=== PATIENT | female | born 1985 | race American Indian/Alaskan Native ===

== ENCOUNTER 2018-12-04 13:11 | Inpatient (IN) | payer MEDICAID ==
--- NOTE | 2018-12-04 13:20 | Emergency Department Report ---
HPI - General Time Seen by Provider: 12/04/18 13:14 - HPI HPI: Charge nurse Triage/Room 23 The patient is a 33 y/o F p/w a CC of Headache and blurred vision. The patient states She's had a headache for the past 2-3 days. The patient states today at ~ 11:30 she began having intermittent blurred vision from the left eye. EMS noticed sl left facial weakness ED Past Medical Hx - Surgical History Past Surgical History?: No - Family History Family history: no significant - Social History Smoking Status: Never Smoker Substance Use Type: None ED Review of Systems ROS: Stated complaint: STROKE LIKE SX Other details as noted in HPI Constitutional: no symptoms reported Eyes: vision change ENT: denies: throat pain Respiratory: no symptoms reported Cardiovascular: denies: chest pain Gastrointestinal: denies: abdominal pain Genitourinary: denies: dysuria Musculoskeletal: denies: back pain Neurological: headache Physical Exam - Physical Exam Physical Exam: GEN: WD female lying on stretcher holding emesis bag not appearing to be in acute distress. HEENT: NCAT, EOMI Neck: Trachea midline CV: rrr Lungs: BS equal bilat Abd: S/NT/ND Skin: no diaphoresis Neuro: GCS 15. CN II-XII grossly intact with the exception of CN VII on the left. no drift. tongue appears to dev to the right NIHSS= 3 LOC a. Alert= 0 Not alert but arousable to minor stimuli=1 Not alert requires repeated or strong stimuli to move= 2 Responds only reflex motor or unresponsive=3 b. asks month and age answers both correctly= 0 answers one correctly= 1 answers neither correctly= 2 Best Gaze normal= 0 abnormal in one or both but forced deviation or total paresis absent= 1 forced deviation or total gaze paresis= 2 Visual no visual loss= 0 partial hemianopia= 1 complete hemianopia= 2 bilateral hemianopia= 3 Facial Palsy normal= 0 (+) minor paralysis= 1 partial paralysis= 2 complete paralysis= 3 Motor Arm no drift= 0 drift before 10 secs but doesnt hit bed= 1 some effort against gravity= 2 no effort against gravity= 3 no movement= 4 Motor leg no drift= 0 drift before 5 secs but doesnt hit bed= 1 (+) drifts to bed before 5 secs= 2 no effort against gravity= 3 no movement= 4 Limb ataxia absent=0 present in one limb= 1 present in two limbs= 2 Sensory normal= 0 mild sensory loss= 1 severe (unaware of being touched)= 2 Best language mild/some loss of fluency= 1 severe= 2 mute= 3 Dysarthria normal= 0 slurs some words= 1 severe/unintelligible= 2 Extinction and Inattention no abnormality= 0 visual, tactile, auditory or personal inattention= 1 profound (doesnt recognize own hand or orients to only one side= 2 ED Course - Consultations Consultation #1: 12/04/18 13:40 Tele neurology paged 12/04/18 13:46 Case discussed with neurologist Dr. Camacho 12/04/18 14:09 Case discussed with neurologist-recommends administering TPA unless patient shows rapid improvement ED Medical Decision Making - Lab Data Result diagrams: 12/04/18 13:32 12/04/18 13:32 Laboratory Tests 12/04/18 12/04/18 12/04/18 13:16 13:32 13:32 WBC 13.2 H RBC 4.69 Hgb 11.1 Hct 34.6 MCV 74 L MCH 24 L MCHC 32 RDW 18.8 H Plt Count 354 Lymph % (Auto) 25.1 [place] % (Auto) 4.7 Eos % (Auto) 1.4 Baso % (Auto) 0.4 Lymph # 3.3 [place] # 0.6 Eos # 0.2 Baso # 0.1 Seg Neutrophils % 68.4 Seg Neutrophils # 9.0 H PT 13.6 INR 1.00 APTT 25.0 Thrombin Time 15.1 Sodium Potassium Chloride Carbon Dioxide Anion Gap BUN Creatinine Estimated GFR BUN/Creatinine Ratio Glucose POC Glucose 122 H Calcium Total Bilirubin AST ALT Alkaline Phosphatase Total Creatine Kinase CK-MB (CK-2) CK-MB (CK-2) Rel Index Troponin T Total Protein Albumin Albumin/Globulin Ratio HCG, Quant 12/04/18 12/04/18 13:32 13:32 WBC RBC Hgb Hct MCV MCH MCHC RDW Plt Count Lymph % (Auto) [place] % (Auto) Eos % (Auto) Baso % (Auto) Lymph # [place] # Eos # Baso # Seg Neutrophils % Seg Neutrophils # PT INR APTT Thrombin Time Sodium 141 Potassium 4.0 Chloride 104.0 Carbon Dioxide 27 Anion Gap 14 BUN 10 Creatinine 0.7 Estimated GFR > 60 BUN/Creatinine Ratio 14 Glucose 102 H POC Glucose Calcium 9.5 Total Bilirubin 0.20 AST 16 ALT 38 Alkaline Phosphatase 117 Total Creatine Kinase 115 CK-MB (CK-2) < 1.0 CK-MB (CK-2) Rel Index 0.8 Troponin T < 0.010 Total Protein 7.2 Albumin 4.3 Albumin/Globulin Ratio 1.5 HCG, Quant < 2 - EKG Data -: EKG Interpreted by Ga EKG shows normal: sinus rhythm Rate: normal - EKG Data When compared to previous EKG there are: previous EKG unavailable Interpretation: other (no ischemic changes) - Radiology Data Radiology results: report reviewed (CT head), image reviewed (CT head) [facility] [address] [place] [address] Cat Scan Report Signed Patient: RENEE CHAVEZ MR#: [id number] : 1985 Acct:[id number] Age/Sex: 33 / F ADM Date: 12/04/18 Loc: ED Attending Dr: Ordering Physician: FLAQUITA BUTLER MD Date of Service: 12/04/18 Procedure(s): CT head/brain wo con Accession Number(s): [id number] cc: FLAQUITA BUTLER MD FINAL REPORT EXAM: CT HEAD/BRAIN WO CON HISTORY: Stroke symptoms TECHNIQUE: CT examination of the head without IV contrast PRIORS: None. FINDINGS: Nonspecific complete opacification right sphenoid sinus. This could obscure fluid. No acute air-fluid level visualized in the included air-filled sinuses. Bone windows demonstrate no acute fracture. The brain is without mass, mass effect, hemorrhage, or acute infarct. There is no extra-axial intracranial bleed, brain bleed, or midline shift. The ventricles and sulci are age-appropriate. IMPRESSION: No acute CVA, intracranial bleed, or brain mass Complete opacification right sphenoid sinus could obscure fluid from acute sinusitis Transcribed By: BAL Dictated By: WILMAN ROJAS MD Electronically Authenticated By: WILMAN ROJAS MD Signed Date/Time: 12/04/181404 DD/ 06 TD/TT: 12/04/181406 - Differential Diagnosis Complex migraine, CVA, Ashley's palsy, MS Critical Care Time: Yes Critical care time in (mins) excluding proc time.: 30 Critical care attestation.: If time is entered above; I have spent that time in minutes in the direct care of this critically ill patient, excluding procedure time. ED Disposition Clinical Impression: CVA (cerebral vascular accident) Disposition: OP ADMIT IP TO THIS HOSP Is pt being admited?: Yes Does the pt Need Aspirin: No Condition: Serious Time of Disposition: 14:35 (Hospitalist Notified (Dr Woody))
[2018-12-04] MEDS ORDERED: FUL-GLO OP ONE (13:42)
--- NOTE | 2018-12-04 14:05 | Cat Scan Report ---
FINAL REPORT EXAM: CT HEAD/BRAIN WO CON HISTORY: Stroke symptoms TECHNIQUE: CT examination of the head without IV contrast PRIORS: None. FINDINGS: Nonspecific complete opacification right sphenoid sinus. This could obscure fluid. No acute air-fluid level visualized in the included air-filled sinuses. Bone windows demonstrate no acute fracture. The brain is without mass, mass effect, hemorrhage, or acute infarct. There is no extra-axial intracranial bleed, brain bleed, or midline shift. The ventricles and sulci are age-appropriate. IMPRESSION: No acute CVA, intracranial bleed, or brain mass Complete opacification right sphenoid sinus could obscure fluid from acute sinusitis
[2018-12-04] MEDS ORDERED: ACTIVASE IV ONE ×2 (14:08)
[2018-12-04] MEDS ORDERED: NACL 0.9% IV ONE (14:08)
[2018-12-04] MEDS ORDERED: ACTIVASE ONE (14:11)
[2018-12-04] MEDS ORDERED: NACL 0.9% 500 ML 0 ML ONE (14:12)
[2018-12-04 14:14] LABS: Basophils # (Auto) 0.1 K/mm3 (0.0-0.1); Basophils % (Auto) 0.4 % (0.0-1.8); Eosinophils # (Auto) 0.2 K/mm3 (0.0-0.4); Eosinophils % (Auto) 1.4 % (0.0-4.3); Hematocrit 34.6 % (30.3-42.9); Hemoglobin 11.1 gm/dl (10.1-14.3); Lymphocytes # (Auto) 3.3 K/mm3 (1.2-5.4); Lymphocytes % (Auto) 25.1 % (13.4-35.0); Mean Corpuscular HGB Conc 32 % (30-34); Mean Corpuscular Volume 74 fl (79-97); Monocytes # (Auto) 0.6 K/mm3 (0.0-0.8); Monocytes % (Auto) 4.7 % (0.0-7.3); Platelet Count 354 K/mm3 (140-440); Red Blood Count 4.69 M/mm3 (3.65-5.03); Red Cell Distribution Width 18.8 % (13.2-15.2)
[2018-12-04 14:18] LABS: Alanine Aminotransferase 38 units/L (7-56); Albumin 4.3 g/dL (3.9-5); BUN/Creatinine Ratio 14; Blood Urea Nitrogen 10 mg/dL (7-17); Calcium 9.5 mg/dL (8.4-10.2); Hemolysis Index 6
[2018-12-04 14:26] LABS: Creatine Kinase MB < 1.0 ng/mL (0.0-4.0)
[2018-12-04 14:33] LABS: Thrombin Time 15.1 Sec. (15.1-19.6)
[2018-12-04 15:00] LABS: Bacteria,Urine 1+ /HPF (Negative); Bilirubin,Urine NEG (Negative); Blood,Urine NEG (Negative); Color,Urine Yellow (Yellow); Mucus,Urine FEW /HPF; Protein,Urine <15 mg/dL mg/dL (Negative); Urobilinogen,Urine < 2.0 mg/dL (<2.0)
[2018-12-04] MEDS ORDERED: SODIUM CHLORIDE FLUSH SYRINGE 10 ML IV PRN (15:07)
[2018-12-04] MEDS ORDERED: PHENERGAN PR PRN (15:07)
[2018-12-04] MEDS ORDERED: REGLAN PO PRN (15:07)
[2018-12-04] MEDS ORDERED: DULCOLAX PR PRN (15:07)
[2018-12-04] MEDS ORDERED: MILK OF MAGNESIA PO PRN (15:07)
[2018-12-04] MEDS ORDERED: ZOFRAN IV PRN (15:07)
--- NOTE | 2018-12-04 15:10 | History and Physical Report ---
History of Present Illness Chief complaint: I feel weak History of present illness: 33 YO Female with Obesity presents to ED for evaluation. Pt states that she has experienced a headache for the past 2 days with persistent symptoms during the same time frame. Pt also reports acute onset of blurred vision in her left eye, left facial weakness, and Left leg weakness. EMS notified, and upon arrival the patient was found to have evidence of neurologic deficit. Pt transported to [facility] for further care and evaluation. Pt seen and evaluated in ED and found to have evidence of CVA. Teleneurology consulted, and patient was treated with TPA as per neurology recommendations. Pt admitted to ICU and initiated on CVA protocol. Past History Past Medical History: other (obesity) Past Surgical History: No surgical history (reviewed) Social history: single Family history: no significant family history (reviewed) Medications and Allergies Allergies Allergy/AdvReac Type Severity Reaction Status Date / Time ibuprofen Allergy Unknown Verified 12/04/18 13:20 Home Medications Medication Instructions Recorded Confirmed Last Taken Type ALBUTEROL Inhaler (OR & NICU) 2 puff IH QAM&QHS PRN 12/04/18 12/04/18 Unknown History [Proair] Acetaminophen [Tylenol] 1 - 2 tab PO Q6HR PRN 12/04/18 12/04/18 Unknown History Fluticasone [Flonase] 2 spray NS QDAY 12/04/18 12/04/18 Unknown History Loratadine [Claritin] 10 mg PO DAILY 12/04/18 12/04/18 Unknown History Review of Systems Constitutional: no weight loss, no weight gain, no fever, no chills Eyes: left: blurred vision Ears, nose, mouth and throat: no ear pain, no ear discharge, no tinnitis, no decreased hearing, no nose pain Breasts: no change in shape, no swelling, no mass Cardiovascular: no chest pain, no orthopnea, no palpitations, no rapid/irregular heart beat Respiratory: no cough, no cough with sputum, no excessive sputum, no hemoptysis, no shortness of breath Gastrointestinal: no nausea, no vomiting, no diarrhea, no constipation, no change in bowel habits Genitourinary Female: no dysmenorrhea, no pelvic pain, no flank pain, no menorrhagia, no dysuria, no urinary frequency, no urgency Menstruation: no premenarcheal, no post hysterectomy, no ammenorrhea, no ammenorrhea on BC, no period normal, no period heavy Rectal: no pain, no incontinence, no bleeding Musculoskeletal: no neck pain, no shooting arm pain, no arm numbness/tingling, no low back pain, no shooting leg pain Integumentary: no rash, no pruritis, no redness, no sores, no wounds Neurological: paralysis, weakness, loss of vision, no transient paralysis, no parathesias, no numbness, no tingling, no seizures Psychiatric: no anxiety, no memory loss, no change in sleep habits, no sleep disturbances, no insomnia, no hypersomnia, no change in appetite Endocrine: no cold intolerance, no heat intolerance, no polyphagia, no excessive thirst, no polydipsia, no polyuria Hematologic/Lymphatic: no easy bruising, no easy bleeding, no lymphadenopathy, no lymphedema Allergic/Immunologic: no urticaria, no allergic rhinitis, no wheezing, no pers istent infections Exam - Constitutional Vitals: Temp Pulse Resp BP Pulse Ox 98.0 F 78 15 149/76 100 12/04/18 13:15 12/04/18 14:45 12/04/18 14:45 12/04/18 14:45 12/04/18 14:45 General appearance: Present: mild distress, obese - EENT Eyes: Present: PERRL ENT: hearing intact, clear oral mucosa - Neck Neck: Present: supple, normal ROM - Respiratory Respiratory effort: normal Respiratory: bilateral: CTA - Cardiovascular Heart Sounds: Present: S1 & S2. Absent: rub, click - Extremities Extremities: pulses symmetrical, No edema Peripheral Pulses: within normal limits - Abdominal General gastrointestinal: Present: soft, non-tender, non-distended, normal bowel sounds Female genitourinary: Present: normal - Integumentary Integumentary: Present: clear, warm, dry - Musculoskeletal Musculoskeletal: left sided weakness - Psychiatric Psychiatric: appropriate mood/affect, intact judgment & insight - Neurologic Neurologic: CNII-XII intact, moves all extremities Results - Labs CBC & Chem 7: 12/04/18 13:32 12/04/18 13:32 Labs: Abnormal lab results 12/04/18 12/04/18 12/04/18 Range/Units 13:16 13:32 13:32 WBC 13.2 H (4.5-11.0) K/mm3 MCV 74 L (79-97) fl MCH 24 L (28-32) pg RDW 18.8 H (13.2-15.2) % Seg Neutrophils # 9.0 H (1.8-7.7) K/mm3 Glucose 102 H (65-100) mg/dL POC Glucose 122 H (70-105) U Epithel Cells (Auto) (0-13.0) /HPF 12/04/18 Range/Units 14:48 WBC (4.5-11.0) K/mm3 MCV (79-97) fl MCH (28-32) pg RDW (13.2-15.2) % Seg Neutrophils # (1.8-7.7) K/mm3 Glucose (65-100) mg/dL POC Glucose (70-105) U Epithel Cells (Auto) 14.0 H (0-13.0) /HPF Assessment and Plan - Patient Problems (1) CVA (cerebral vascular accident) Current Visit: Yes Status: Acute Qualifiers: Precerebral and cerebral artery: middle cerebral artery Laterality of affected vessel: right Plan to address problem: Admit to ICU, S/P TPA administration in ED, MRI Brain, MRA Brain, Echo, Carotid doppler, EEG, Antiplatelet therapy, Neuro checks, The high probability of a clinically significant, sudden or life threatening deterioration of the [neuro, resp] system(s) required my full and direct attention, intervention and personal management. The aggregate critical care time was [65] minutes. This time is in addition to time spent performing reported procedures but includes the following: [x] Data Review and interpretation [x] Patient assessment and monitoring of vital signs [x] Documentation [x] Medication orders and management (2) UTI (urinary tract infection) Current Visit: Yes Status: Acute Qualifiers: Urinary tract infection type: acute cystitis Plan to address problem: IV antibiotic therapy, urinialysis, supportive care. (3) SIRS (systemic inflammatory response syndrome) Current Visit: Yes Status: Acute Plan to address problem: IV antibiotic therapy, supportive care, CBC, CMP, monitor uop q shift (4) DVT prophylaxis Current Visit: Yes Status: Acute Plan to address problem: SCD to BLE while in bed.
[2018-12-04] MEDS ORDERED: PROAIR IH PRN (15:11)
[2018-12-04] MEDS ORDERED: PROVENTIL IH PRN (15:37)
--- NOTE | 2018-12-04 17:45 | Cat Scan Report ---
FINAL REPORT PROCEDURE: CT angiogram head with contrast. TECHNIQUE: Computerized tomographic angiography of the head was performed after the IV injection of iodinated nonionic contrast including image processing. The image data was postprocessed using 2-dime nsional multiplanar reformatted (MPR) and 3-dimensional (MIP and/or volume rendered) techniques. HISTORY: Left-sided weakness. COMPARISON: No prior studies are available for comparison. FINDINGS: Both distal internal carotid arteries are widely patent. Both anterior cerebral arteries are patent. The anterior communicating artery is patent. Both middle cerebral arteries are patent. Both posterior communicating arteries are patent. Both distal vertebral arteries are patent. Both posterior inferio r cerebellar arteries are patent. The basilar artery is patent. Both anterior inferior cerebellar art eries are patent. Both superior cerebellar and both posterior cerebral arteries are patent. There are no signs of aneurysm disease. There is no evidence of a vasculitis. There is no evidence of abnormal contrast enhancement within the brain parenchyma. IMPRESSION: Normal study.
--- NOTE | 2018-12-04 18:06 | Cat Scan Report ---
FINAL REPORT EXAM: CT ANGIO NECK HISTORY: left-sided weakness TECHNIQUE: Carotids/neck CT angiography with IV contrast 2D and 3D image reformation PRIORS: None. FINDINGS: Large body habitus limits the examination. Increased soft tissue attenuates the CT x-ray beam and de grades image quality. The vertebral and carotid arteries are bilaterally patent diffusely. Vessel caliber is normal without stenosis, ulceration, or aneurysm. There is no definite filling defect to suggest dissection. IMPRESSION: No evidence of neck vascular pathology
--- NOTE | 2018-12-04 18:21 | Consultation ---
History of Present Illness Consult date: 12/04/18 Requesting physician: АНДРЕЙ DEL CASTILLO Reason for consult: other (CVA s/p TPA needs ICU admission for monitoring) History of present illness: 33 YO woman with morbid obesity presented to ED for evaluation. Patient stated that she has experienced a headache for the past 2 days with persistent symptoms during the same time frame. She also reported acute onset of blurred vision in her left eye, left facial weakness, and Left leg weakness. EMS notified, and upon arrival the patient was found to have evidence of neurologic deficit. Patient was transported to [facility] for further care and evaluation.She seen and evaluated in ED and a diagnosis of acute CVA was made. Teleneurology consulted, and patient was treated with TPA per neurology recommendations. Patient was admitted to ICU and I have been consulted for critical care management. Patient seen and examined in the ED s/p TPA for acute CVA Vitals, Labs, medications, chart were reviewed. She continues to complain of a headache, no nausea or vomiting. REVIEW OF SYSTEMS Constitutional: no symptoms reported Eyes: vision change ENT: denies: throat pain Respiratory: no symptoms reported, no cough, no shortness of breath, no hemoptysis Cardiovascular: denies: chest pain, no palpitations,orthopnea, PND Gastrointestinal: denies: abdominal pain, no nausea, no vomiting Genitourinary: denies: dysuria Musculoskeletal: denies: back pain, joint aches and pains, arthralgia Neurological: headache Past History Past Medical History: other (obesity) Past Surgical History: No surgical history (reviewed) Social history: single Family history: no significant family history (reviewed) Medications and Allergies Allergies Allergy/AdvReac Type Severity Reaction Status Date / Time ibuprofen Allergy Unknown Verified 12/04/18 13:20 Home Medications Medication Instructions Recorded Confirmed Last Taken Type ALBUTEROL Inhaler (OR & NICU) 2 puff IH QAM&QHS PRN 12/04/18 12/04/18 Unknown History [Proair] Acetaminophen [Tylenol] 1 - 2 tab PO Q6HR PRN 12/04/18 12/04/18 Unknown History Fluticasone [Flonase] 2 spray NS QDAY 12/04/18 12/04/18 Unknown History Loratadine [Claritin] 10 mg PO DAILY 12/04/18 12/04/18 Unknown History Active Meds: Active Medications Acetaminophen (Tylenol) 650 mg PO Q4H PRN PRN Reason: Pain, Mild (1-3) Albuterol (Proventil) 2.5 mg IH Q4HRT PRN PRN Reason: Shortness Of Breath Atorvastatin Calcium (Lipitor) 40 mg PO QHS VALERIA Bisacodyl (Dulcolax) 10 mg OK QDAY PRN PRN Reason: Constipation Fluticasone Propionate (Flonase) 100 mcg NS QDAY VALERIA Ceftriaxone Sodium (Rocephin/Ns 1 Gm/50 Ml) 1 gm in 50 mls @ 100 mls/hr IV Q24HR VALERIA; Protocol Loratadine (Claritin) 10 mg PO DAILY VALERIA Magnesium Hydroxide (Milk Of Magnesia) 30 ml PO Q4H PRN PRN Reason: Constipation Metoclopramide HCl (Reglan) 10 mg PO Q6H PRN PRN Reason: Nausea And Vomiting Ondansetron HCl (Zofran) 4 mg IV Q8H PRN PRN Reason: Nausea And Vomiting Promethazine HCl (Phenergan) 25 mg OK Q6H PRN PRN Reason: Nausea And Vomiting Sodium Chloride (Sodium Chloride Flush Syringe 10 Ml) 10 ml IV PRN PRN PRN Reason: LINE FLUSH Physical Examination Vital signs: Vital Signs Temp Pulse Resp BP Pulse Ox 98.0 F 103 H 18 183/60 100 12/04/18 13:15 12/04/18 13:15 12/04/18 13:15 12/04/18 13:15 12/04/18 13:15 General appearance: no acute distress, appears uncomfortable, other (morbid obese) Eyes: non-icteric ENT: oropharynx moist Neck: supple, no lymphadenopathy, no JVD, other (short neck) Effort: normal Ascultation: Bilateral: clear, diminished breath sounds (at the bases, poor effort) Cardiovascular: regular rate and rhythm, other (S1,S2,no murmurs, gallops or rubs) Gastrointestinal: normoactive bowel sounds, soft, non-tender, non-distended, other (no hepatosplenomegally) Integumentary: normal Extremities: no cyanosis, no edema, pulses normal, no ischemia or petechiae Musculoskeletal: no deformities non-focal exam, pupils equal and round, CN II-XII normal, motor strength normal and mood appropriate Results - Laboratory Findings CBC and BMP: 12/04/18 13:32 12/04/18 13:32 PT/INR, D-dimer PT 13.6 Sec. (12.2-14.9) 12/04/18 13:32 INR 1.00 (0.87-1.13) 12/04/18 13:32 Abnormal lab findings: Abnormal Labs 12/04/18 12/04/18 12/04/18 13:16 13:32 13:32 WBC 13.2 H MCV 74 L MCH 24 L RDW 18.8 H Seg Neutrophils # 9.0 H Glucose 102 H POC Glucose 122 H U Epithel Cells (Auto) 12/04/18 14:48 WBC MCV MCH RDW Seg Neutrophils # Glucose POC Glucose U Epithel Cells (Auto) 14.0 H Assessment and Plan -Acute CVA (right MCA) S/P TPA administration in ED, -Hypertension -Extreme obesity Admit to ICU --ICU monitoring per protocol s/p TPA -Neurochecks per protocol -Blood pressure management per protocol -Fasting lipid profile, TSH -Secondary stroke prophylaxis -MRI/MRA brain -Symptom management of headaches -Life style modification and weight loss -Currently on empiric antibiotics from ED for possible UTI. Follow cultures and NNACY, in the absence of signs of infection will de-escalate antibiotic therapy -Monitor leukocytosis -PT/OT/FINANCIAL COORDINATOR evaluation -Keep NPO for now -SCDs for VTE prophylaxis for now -Monitor accucheck and avoid hypoglycemia The high probability of a clinically significant, sudden or life threatening deterioration of the [neurologic] system(s) required my full and direct attention, intervention and personal management. The aggregate critical care time was [35] minutes. This time is in addition to time spent performing reported procedures but includes the following: [x] Data Review and interpretation [x] Patient assessment and monitoring of vital signs [x] Documentation [x] Medication orders and management
[2018-12-04] MEDS: ROCEPHIN/NS 1 GM/50 ML 1 GM/50 ML BAG IV SCH (18:43)
[2018-12-04] MEDS: TYLENOL PO PRN (22:24)
[2018-12-05 05:26] LABS: Chol/HDL Ratio 3.75 %
[2018-12-05] MEDS: CLARITIN PO SCH (09:45)
[2018-12-05] MEDS: ROCEPHIN/NS 1 GM/50 ML 1 GM/50 ML BAG IV SCH (09:45)
[2018-12-05] MEDS: TYLENOL PO PRN (10:33)
--- NOTE | 2018-12-05 10:50 | Progress Note ---
Assessment and Plan -Acute CVA (right MCA) S/P TPA administration in ED, -Hypertension -Extreme obesity -Blood pressure management -Fasting lipid profile, TSH -Secondary stroke prophylaxis -MRI/MRA brain -Symptom management of headaches -Life style modification and weight loss -Monitor leukocytosis -PT/OT -VTE prophylaxis for now -Monitor accucheck and avoid hypoglycemia Subjective Date of service: 12/05/18 Interval history: Patient is seen today for: Acute CVA (right MCA) S/P TPA administration in ED; Hypertension; Extreme obesity Seen and examined at bedside; 24hour events reviewed; nursing and respiratory care staff consulted; no adverse overnight events reported to me; resting peacefully in bed; no new issues respiratory-garcias; No N/V/F/C; no new onset focal weakness Objective Vital Signs - 12hr 12/04/18 12/04/18 12/04/18 22:51 23:00 23:11 Temperature Pulse Rate 103 H 76 73 Pulse Rate [ Left Arm] Respiratory 16 17 22 Rate Respiratory Rate [Left Arm] Blood Pressure 155/99 155/99 152/103 Blood Pressure [Left Arm] O2 Sat by Pulse 99 100 100 Oximetry O2 Sat by Pulse Oximetry [Left Arm] 12/04/18 12/04/18 12/04/18 23:21 23:30 23:41 Temperature Pulse Rate 73 64 69 Pulse Rate [ Left Arm] Respiratory 16 17 18 Rate Respiratory Rate [Left Arm] Blood Pressure 136/100 131/94 131/94 Blood Pressure [Left Arm] O2 Sat by Pulse 100 100 100 Oximetry O2 Sat by Pulse Oximetry [Left Arm] 12/04/18 12/04/18 12/05/18 23:45 23:51 00:00 Temperature 97.1 F L Pulse Rate 67 65 Pulse Rate [ 68 Left Arm] Respiratory 19 12 Rate Respiratory 17 Rate [Left Arm] Blood Pressure 140/89 141/102 Blood Pressure 140/89 [Left Arm] O2 Sat by Pulse 100 100 Oximetry O2 Sat by Pulse 100 Oximetry [Left Arm] 12/05/18 12/05/18 12/05/18 00:11 00:21 00:30 Temperature Pulse Rate 70 68 67 Pulse Rate [ Left Arm] Respiratory 17 17 16 Rate Respiratory Rate [Left Arm] Blood Pressure 141/102 143/94 142/89 Blood Pressure [Left Arm] O2 Sat by Pulse 100 100 100 Oximetry O2 Sat by Pulse Oximetry [Left Arm] 12/05/18 12/05/18 12/05/18 00:41 00:45 00:51 Temperature Pulse Rate 69 75 Pulse Rate [ 67 Left Arm] Respiratory 12 29 H Rate Respiratory 16 Rate [Left Arm] Blood Pressure 142/89 146/95 Blood Pressure 143/94 [Left Arm] O2 Sat by Pulse 100 100 Oximetry O2 Sat by Pulse 100 Oximetry [Left Arm] 12/05/18 12/05/18 12/05/18 01:00 01:11 01:21 Temperature Pulse Rate 66 63 74 Pulse Rate [ 66 Left Arm] Respiratory 17 17 16 Rate Respiratory 18 Rate [Left Arm] Blood Pressure 143/91 146/95 127/69 Blood Pressure 143/94 [Left Arm] O2 Sat by Pulse 100 99 100 Oximetry O2 Sat by Pulse 100 Oximetry [Left Arm] 12/05/18 12/05/18 12/05/18 01:30 01:41 02:00 Temperature Pulse Rate 67 65 67 Pulse Rate [ 69 Left Arm] Respiratory 22 13 16 Rate Respiratory 16 Rate [Left Arm] Blood Pressure 136/78 136/78 118/71 Blood Pressure 118/71 [Left Arm] O2 Sat by Pulse 100 99 100 Oximetry O2 Sat by Pulse 100 Oximetry [Left Arm] 12/05/18 12/05/18 12/05/18 02:15 02:30 02:45 Temperature Pulse Rate 63 62 69 Pulse Rate [ Left Arm] Respiratory 13 13 14 Rate Respiratory Rate [Left Arm] Blood Pressure 117/75 124/66 100/72 Blood Pressure [Left Arm] O2 Sat by Pulse 100 100 99 Oximetry O2 Sat by Pulse Oximetry [Left Arm] 12/05/18 12/05/18 12/05/18 02:51 03:00 03:11 Temperature Pulse Rate 71 64 65 Pulse Rate [ 64 Left Arm] Respiratory 15 15 14 Rate Respiratory 15 Rate [Left Arm] Blood Pressure 100/72 125/68 100/72 Blood Pressure 125/68 [Left Arm] O2 Sat by Pulse 99 99 100 Oximetry O2 Sat by Pulse 99 Oximetry [Left Arm] 12/05/18 12/05/18 12/05/18 03:21 03:30 03:41 Temperature Pulse Rate 65 69 66 Pulse Rate [ Left Arm] Respiratory 13 13 13 Rate Respiratory Rate [Left Arm] Blood Pressure 108/81 122/81 125/68 Blood Pressure [Left Arm] O2 Sat by Pulse 100 100 100 Oximetry O2 Sat by Pulse Oximetry [Left Arm] 12/05/18 12/05/18 12/05/18 03:51 04:00 04:11 Temperature 98.9 F Pulse Rate 63 66 70 Pulse Rate [ 66 Left Arm] Respiratory 12 12 14 Rate Respiratory 12 Rate [Left Arm] Blood Pressure 125/90 112/71 112/71 Blood Pressure 112/71 [Left Arm] O2 Sat by Pulse 100 100 99 Oximetry O2 Sat by Pulse 100 Oximetry [Left Arm] 12/05/18 12/05/18 12/05/18 04:21 04:30 04:41 Temperature Pulse Rate 69 67 79 Pulse Rate [ Left Arm] Respiratory 14 13 14 Rate Respiratory Rate [Left Arm] Blood Pressure 108/64 115/76 115/76 Blood Pressure [Left Arm] O2 Sat by Pulse 99 99 100 Oximetry O2 Sat by Pulse Oximetry [Left Arm] 12/05/18 12/05/18 12/05/18 04:51 05:00 05:01 Temperature Pulse Rate 75 85 Pulse Rate [ 75 Left Arm] Respiratory 19 19 Rate Respiratory 19 Rate [Left Arm] Blood Pressure 129/83 122/32 Blood Pressure 129/83 [Left Arm] O2 Sat by Pulse 100 99 Oximetry O2 Sat by Pulse 100 Oximetry [Left Arm] 12/05/18 12/05/18 12/05/18 05:11 05:21 05:30 Temperature Pulse Rate 71 69 68 Pulse Rate [ Left Arm] Respiratory 15 14 12 Rate Respiratory Rate [Left Arm] Blood Pressure 122/32 123/54 125/67 Blood Pressure [Left Arm] O2 Sat by Pulse 100 100 100 Oximetry O2 Sat by Pulse Oximetry [Left Arm] 12/05/18 12/05/18 12/05/18 05:41 05:51 06:00 Temperature Pulse Rate 67 72 71 Pulse Rate [ 71 Left Arm] Respiratory 13 14 14 Rate Respiratory 14 Rate [Left Arm] Blood Pressure 125/67 121/53 125/54 Blood Pressure 125/54 [Left Arm] O2 Sat by Pulse 99 99 99 Oximetry O2 Sat by Pulse 99 Oximetry [Left Arm] 12/05/18 12/05/18 12/05/18 06:11 06:21 06:31 Temperature Pulse Rate 71 75 72 Pulse Rate [ Left Arm] Respiratory 14 14 19 Rate Respiratory Rate [Left Arm] Blood Pressure 125/54 133/64 116/51 Blood Pressure [Left Arm] O2 Sat by Pulse 99 100 100 Oximetry O2 Sat by Pulse Oximetry [Left Arm] 12/05/18 12/05/18 12/05/18 06:41 06:51 07:00 Temperature Pulse Rate 69 68 65 Pulse Rate [ Left Arm] Respiratory 15 13 13 Rate Respiratory Rate [Left Arm] Blood Pressure 116/51 133/87 130/86 Blood Pressure [Left Arm] O2 Sat by Pulse 98 100 97 Oximetry O2 Sat by Pulse Oximetry [Left Arm] 12/05/18 12/05/18 12/05/18 07:10 07:20 07:30 Temperature Pulse Rate 63 69 72 Pulse Rate [ Left Arm] Respiratory 13 14 15 Rate Respiratory Rate [Left Arm] Blood Pressure 130/86 119/90 130/86 Blood Pressure [Left Arm] O2 Sat by Pulse 99 99 100 Oximetry O2 Sat by Pulse Oximetry [Left Arm] 12/05/18 12/05/18 12/05/18 07:40 07:50 07:54 Temperature 98.4 F Pulse Rate 66 72 Pulse Rate [ Left Arm] Respiratory 12 17 Rate Respiratory Rate [Left Arm] Blood Pressure 107/70 107/70 Blood Pressure [Left Arm] O2 Sat by Pulse 99 100 Oximetry O2 Sat by Pulse Oximetry [Left Arm] 12/05/18 08:00 Temperature Pulse Rate 73 Pulse Rate [ Left Arm] Respiratory 17 Rate Respiratory Rate [Left Arm] Blood Pressure 107/70 Blood Pressure [Left Arm] O2 Sat by Pulse 99 Oximetry O2 Sat by Pulse Oximetry [Left Arm] Constitutional: no acute distress, appears uncomfortable, other (morbid obese) Eyes: non-icteric ENT: oropharynx moist Neck: supple, no lymphadenopathy, no JVD, other (short neck) Effort: normal Ascultation: Bilateral: clear, diminished breath sounds (at the bases, poor effort) Cardiovascular: regular rate and rhythm, other (S1,S2,no murmurs, gallops or rubs) Gastrointestinal: normoactive bowel sounds, soft, non-tender, non-distended, other (no hepatosplenomegally) Integumentary: normal Extremities: no cyanosis, no edema, pulses normal, no ischemia or petechiae Neurologic: non-focal exam, pupils equal and round, CN II-XII normal, motor strength normal and Psychiatric: mood appropriate, affect normal CBC and BMP: 12/04/18 13:32 12/04/18 13:32 ABG, PT/INR, D-dimer: PT/INR, D-dimer PT 13.6 Sec. (12.2-14.9) 12/04/18 13:32 INR 1.00 (0.87-1.13) 12/04/18 13:32 Abnormal lab findings: Abnormal Labs 12/04/18 12/04/18 12/04/18 13:16 13:32 13:32 WBC 13.2 H MCV 74 L MCH 24 L RDW 18.8 H Seg Neutrophils # 9.0 H Glucose 102 H POC Glucose 122 H HDL Cholesterol U Epithel Cells (Auto) 12/04/18 12/05/18 14:48 04:47 WBC MCV MCH RDW Seg Neutrophils # Glucose POC Glucose HDL Cholesterol 32 L U Epithel Cells (Auto) 14.0 H Additional Studies: CT head, CTA head and neck and carotid Dopplers were found to be negative. MRI/MRA found to be negative. Echocardiogram revealed left ventricular wall motion and contractility within normal limits. EF is 55-60%. No atrial septal defect demonstrated by agitated saline contrast
[2018-12-05] MEDS: FLONASE NS SCH (11:30)
--- NOTE | 2018-12-05 11:48 | Progress Note ---
Assessment and Plan Assessment and plan: Acute right MCA CVA. The patient is status post TPA in the emergency department. Continue ICU monitoring and will transfer to the floor after 24 hours. PT/OT. Follow-up MRI/MRA, echocardiogram and carotid Dopplers. Continue antiplatelet therapy and statin. UTI. Continue antibiotics for now. Follow cultures. Morbid obesity. Patient will be counseled on exercise and weight loss. History Interval history: No new issues overnight. Hospitalist Physical - Constitutional Vitals: Temp Pulse Resp BP Pulse Ox 98.4 F 73 17 107/70 99 12/05/18 07:54 12/05/18 08:00 12/05/18 08:00 12/05/18 08:00 12/05/18 08:00 General appearance: Present: no acute distress, obese - EENT Eyes: Present: PERRL, EOM intact ENT: hearing intact, clear oral mucosa, dentition normal - Neck Neck: Present: supple, normal ROM - Respiratory Respiratory effort: normal Respiratory: bilateral: CTA - Cardiovascular Rhythm: regular Heart Sounds: Present: S1 & S2. Absent: gallop, rub - Extremities Extremities: no ischemia, No edema, Full ROM - Abdominal General gastrointestinal: soft, non-tender, non-distended, normal bowel sounds - Integumentary Integumentary: Present: clear, warm, dry - Neurologic Neurologic: CNII-XII intact, moves all extremities Results - Labs CBC & Chem 7: 12/04/18 13:32 12/04/18 13:32 Labs: Laboratory Last Values WBC 13.2 K/mm3 (4.5-11.0) H 12/04/18 13:32 RBC 4.69 M/mm3 (3.65-5.03) 12/04/18 13:32 Hgb 11.1 gm/dl (10.1-14.3) 12/04/18 13:32 Hct 34.6 % (30.3-42.9) 12/04/18 13:32 MCV 74 fl (79-97) L 12/04/18 13:32 MCH 24 pg (28-32) L 12/04/18 13:32 MCHC 32 % (30-34) 12/04/18 13:32 RDW 18.8 % (13.2-15.2) H 12/04/18 13:32 Plt Count 354 K/mm3 (140-440) 12/04/18 13:32 Lymph % (Auto) 25.1 % (13.4-35.0) 12/04/18 13:32 [place] % (Auto) 4.7 % (0.0-7.3) 12/04/18 13:32 Eos % (Auto) 1.4 % (0.0-4.3) 12/04/18 13:32 Baso % (Auto) 0.4 % (0.0-1.8) 12/04/18 13:32 Lymph # 3.3 K/mm3 (1.2-5.4) 12/04/18 13:32 Ada # 0.6 K/mm3 (0.0-0.8) 12/04/18 13:32 Eos # 0.2 K/mm3 (0.0-0.4) 12/04/18 13:32 Baso # 0.1 K/mm3 (0.0-0.1) 12/04/18 13:32 Seg Neutrophils % 68.4 % (40.0-70.0) 12/04/18 13:32 Seg Neutrophils # 9.0 K/mm3 (1.8-7.7) H 12/04/18 13:32 PT 13.6 Sec. (12.2-14.9) 12/04/18 13:32 INR 1.00 (0.87-1.13) 12/04/18 13:32 APTT 25.0 Sec. (24.2-36.6) 12/04/18 13:32 Thrombin Time 15.1 Sec. (15.1-19.6) 12/04/18 13:32 Sodium 141 mmol/L (137-145) 12/04/18 13:32 Potassium 4.0 mmol/L (3.6-5.0) 12/04/18 13:32 Chloride 104.0 mmol/L (98-107) 12/04/18 13:32 Carbon Dioxide 27 mmol/L (22-30) 12/04/18 13:32 Anion Gap 14 mmol/L 12/04/18 13:32 BUN 10 mg/dL (7-17) 12/04/18 13:32 Creatinine 0.7 mg/dL (0.7-1.2) 12/04/18 13:32 Estimated GFR > 60 ml/min 12/04/18 13:32 BUN/Creatinine Ratio 14 % 12/04/18 13:32 Glucose 102 mg/dL (65-100) H 12/04/18 13:32 POC Glucose 122 (70-105) H 12/04/18 13:16 Calcium 9.5 mg/dL (8.4-10.2) 12/04/18 13:32 Total Bilirubin 0.20 mg/dL (0.1-1.2) 12/04/18 13:32 AST 16 units/L (5-40) 12/04/18 13:32 ALT 38 units/L (7-56) 12/04/18 13:32 Alkaline Phosphatase 117 units/L (35-129) 12/04/18 13:32 Total Creatine Kinase 115 units/L (30-135) 12/04/18 13:32 CK-MB (CK-2) < 1.0 ng/mL (0.0-4.0) 12/04/18 13:32 CK-MB (CK-2) Rel Index 0.8 (0-4) 12/04/18 13:32 Troponin T < 0.010 ng/mL (0.00-0.029) 12/04/18 13:32 Total Protein 7.2 g/dL (6.3-8.2) 12/04/18 13:32 Albumin 4.3 g/dL (3.9-5) 12/04/18 13:32 Albumin/Globulin Ratio 1.5 % 12/04/18 13:32 Triglycerides 110 mg/dL (2-149) 12/05/18 04:47 Cholesterol 120 mg/dL (50-199) 12/05/18 04:47 LDL Cholesterol Direct 80 mg/dL (50-130) 12/05/18 04:47 HDL Cholesterol 32 mg/dL (40-59) L 12/05/18 04:47 Cholesterol/HDL Ratio 3.75 % 12/05/18 04:47 HCG, Quant < 2 mIU/mL (0-4) 12/04/18 13:32 Urine Color Yellow (Yellow) 12/04/18 14:48 Urine Turbidity Cloudy (Clear) 12/04/18 14:48 Urine pH 7.0 (5.0-7.0) 12/04/18 14:48 Ur Specific [place] 1.016 (1.003-1.030) 12/04/18 14:48 Urine Protein <15 mg/dl mg/dL (Negative) 12/04/18 14:48 Urine Glucose (UA) Neg mg/dL (Negative) 12/04/18 14:48 Urine Ketones Neg mg/dL (Negative) 12/04/18 14:48 Urine Blood Neg (Negative) 12/04/18 14:48 Urine Nitrite Neg (Negative) 12/04/18 14:48 Urine Bilirubin Neg (Negative) 12/04/18 14:48 Urine Urobilinogen < 2.0 mg/dL (<2.0) 12/04/18 14:48 Ur Leukocyte Esterase Tr (Negative) 12/04/18 14:48 Urine WBC (Auto) 5.0 /HPF (0.0-6.0) 12/04/18 14:48 Urine RBC (Auto) 4.0 /HPF (0.0-6.0) 12/04/18 14:48 U Epithel Cells (Auto) 14.0 /HPF (0-13.0) H 12/04/18 14:48 Urine Bacteria (Auto) 1+ /HPF (Negative) 12/04/18 14:48 Urine Mucus Few /HPF 12/04/18 14:48
--- NOTE | 2018-12-05 18:02 | Magnetic Resonance Report ---
FINAL REPORT EXAM: MR BRAIN WO CON HISTORY: stroke TECHNIQUE: Multiplanar multisequence brain MR imaging without IV contrast. PRIORS: Head CT 12/04/2018 FINDINGS: Right sphenoid sinus is completely opacified by T2 hyperintensity. This may represent fluid and/or re tention cyst. Other paranasal sinuses are clear as are the mastoid air cells and middle ear cavities. The included air filled sinuses contain no visible acute fluid level. The brain is without mass, mass effect, hemorrhage, or acute infarct. There is no midline shift or brain edema. There are no areas of brain restricted diffusion to suggest an acute ischemic infarct. The ventricles and sulci are age-appropriate. IMPRESSION: No acute CVA or brain mass Fluid and/or retention cyst completely opacifies right sphenoid sinus
--- NOTE | 2018-12-05 18:11 | Vascular Lab Report ---
FINAL REPORT EXAM: VL CAROTID DUPLEX BILAT HISTORY: stroke TECHNIQUE: Ultrasound duplex arterial examination of the right neck vasculature Ultrasound duplex arterial examination of the left neck vasculature Degree of carotid stenosis calculated by indirect methods via the peak systolic velocities of the ICA and CCA and reference with the society of Radiologist and Ultrasound consensus conference radiology 2003. PRIORS: Next CTA 12/04/2018 FINDINGS: Normal antegrade flow is demonstrated in both vertebral arteries. No significant intimal thickening o r plaque is demonstrated in either carotid artery. Peak systolic common and internal carotid artery v elocities, as well as ICA/CCA ratios, are within normal limits bilaterally. IMPRESSION: Bilateral carotid artery atherosclerotic change Less than 50 % ICA and CCA carotid stenosis by above-described criteria
[2018-12-05] MEDS: LOVENOX SUB-Q SCH (22:44)
[2018-12-05] MEDS: PLAVIX PO SCH (22:45)
[2018-12-06] MEDS: TYLENOL PO PRN (05:33)
--- NOTE | 2018-12-06 08:12 | Magnetic Resonance Report ---
MRA HEAD WITHOUT CONTRAST HISTORY: Stroke. [id number] imaging with MIP reformations of the augustine of [place] is submitted. The arteries appear widely patent and free of hemodynamically significant stenosis, aneurysm or dissection. IMPRESSION: Unremarkable MRA head.
[2018-12-06] MEDS: ROCEPHIN/NS 1 GM/50 ML 1 GM/50 ML BAG IV SCH (11:30)
--- NOTE | 2018-12-06 11:31 | Progress Note ---
Assessment and Plan Assessment and plan: Acute right MCA CVA. CT head, CTA head and neck and carotid Dopplers were found to be negative. MRI/MRA found to be negative. Echocardiogram revealed left ventricular wall motion and contractility within normal limits. EF is 55-60%. No atrial septal defect demonstrated by agitated saline contrast. Await PT evaluation for disposition and discharge. UTI. Continue antibiotics for now. Follow cultures. Morbid obesity. Patient will be counseled on exercise and weight loss. History Interval history: No new issues overnight. Hospitalist Physical - Constitutional Vitals: Temp Pulse Resp BP Pulse Ox 97.5 F L 68 20 116/58 100 12/06/18 05:13 12/06/18 05:13 12/06/18 05:33 12/06/18 05:13 12/06/18 05:13 General appearance: Present: no acute distress, obese - EENT Eyes: Present: PERRL, EOM intact ENT: hearing intact, clear oral mucosa, dentition normal - Neck Neck: Present: supple, normal ROM - Respiratory Respiratory effort: normal Respiratory: bilateral: CTA - Cardiovascular Rhythm: regular Heart Sounds: Present: S1 & S2. Absent: gallop, rub - Extremities Extremities: no ischemia, No edema, Full ROM - Abdominal General gastrointestinal: soft, non-tender, non-distended, normal bowel sounds - Integumentary Integumentary: Present: clear, warm, dry - Neurologic Neurologic: CNII-XII intact, moves all extremities Results - Labs CBC & Chem 7: 12/04/18 13:32 12/04/18 13:32 Labs: Laboratory Last Values WBC 13.2 K/mm3 (4.5-11.0) H 12/04/18 13:32 RBC 4.69 M/mm3 (3.65-5.03) 12/04/18 13:32 Hgb 11.1 gm/dl (10.1-14.3) 12/04/18 13:32 Hct 34.6 % (30.3-42.9) 12/04/18 13:32 MCV 74 fl (79-97) L 12/04/18 13:32 MCH 24 pg (28-32) L 12/04/18 13:32 MCHC 32 % (30-34) 12/04/18 13:32 RDW 18.8 % (13.2-15.2) H 12/04/18 13:32 Plt Count 354 K/mm3 (140-440) 12/04/18 13:32 Lymph % (Auto) 25.1 % (13.4-35.0) 12/04/18 13:32 [place] % (Auto) 4.7 % (0.0-7.3) 12/04/18 13:32 Eos % (Auto) 1.4 % (0.0-4.3) 12/04/18 13:32 Baso % (Auto) 0.4 % (0.0-1.8) 12/04/18 13:32 Lymph # 3.3 K/mm3 (1.2-5.4) 12/04/18 13:32 [place] # 0.6 K/mm3 (0.0-0.8) 12/04/18 13:32 Eos # 0.2 K/mm3 (0.0-0.4) 12/04/18 13:32 Baso # 0.1 K/mm3 (0.0-0.1) 12/04/18 13:32 Seg Neutrophils % 68.4 % (40.0-70.0) 12/04/18 13:32 Seg Neutrophils # 9.0 K/mm3 (1.8-7.7) H 12/04/18 13:32 PT 13.6 Sec. (12.2-14.9) 12/04/18 13:32 INR 1.00 (0.87-1.13) 12/04/18 13:32 APTT 25.0 Sec. (24.2-36.6) 12/04/18 13:32 Thrombin Time 15.1 Sec. (15.1-19.6) 12/04/18 13:32 Sodium 141 mmol/L (137-145) 12/04/18 13:32 Potassium 4.0 mmol/L (3.6-5.0) 12/04/18 13:32 Chloride 104.0 mmol/L (98-107) 12/04/18 13:32 Carbon Dioxide 27 mmol/L (22-30) 12/04/18 13:32 Anion Gap 14 mmol/L 12/04/18 13:32 BUN 10 mg/dL (7-17) 12/04/18 13:32 Creatinine 0.7 mg/dL (0.7-1.2) 12/04/18 13:32 Estimated GFR > 60 ml/min 12/04/18 13:32 BUN/Creatinine Ratio 14 % 12/04/18 13:32 Glucose 102 mg/dL (65-100) H 12/04/18 13:32 POC Glucose 122 (70-105) H 12/04/18 13:16 Calcium 9.5 mg/dL (8.4-10.2) 12/04/18 13:32 Total Bilirubin 0.20 mg/dL (0.1-1.2) 12/04/18 13:32 AST 16 units/L (5-40) 12/04/18 13:32 ALT 38 units/L (7-56) 12/04/18 13:32 Alkaline Phosphatase 117 units/L (35-129) 12/04/18 13:32 Total Creatine Kinase 115 units/L (30-135) 12/04/18 13:32 CK-MB (CK-2) < 1.0 ng/mL (0.0-4.0) 12/04/18 13:32 CK-MB (CK-2) Rel Index 0.8 (0-4) 12/04/18 13:32 Troponin T < 0.010 ng/mL (0.00-0.029) 12/04/18 13:32 Total Protein 7.2 g/dL (6.3-8.2) 12/04/18 13:32 Albumin 4.3 g/dL (3.9-5) 12/04/18 13:32 Albumin/Globulin Ratio 1.5 % 12/04/18 13:32 Triglycerides 110 mg/dL (2-149) 12/05/18 04:47 Cholesterol 120 mg/dL (50-199) 12/05/18 04:47 LDL Cholesterol Direct 80 mg/dL (50-130) 12/05/18 04:47 HDL Cholesterol 32 mg/dL (40-59) L 12/05/18 04:47 Cholesterol/HDL Ratio 3.75 % 12/05/18 04:47 HCG, Quant < 2 mIU/mL (0-4) 12/04/18 13:32 Urine Color Yellow (Yellow) 12/04/18 14:48 Urine Turbidity Cloudy (Clear) 12/04/18 14:48 Urine pH 7.0 (5.0-7.0) 12/04/18 14:48 Ur Specific [place] 1.016 (1.003-1.030) 12/04/18 14:48 Urine Protein <15 mg/dl mg/dL (Negative) 12/04/18 14:48 Urine Glucose (UA) Neg mg/dL (Negative) 12/04/18 14:48 Urine Ketones Neg mg/dL (Negative) 12/04/18 14:48 Urine Blood Neg (Negative) 12/04/18 14:48 Urine Nitrite Neg (Negative) 12/04/18 14:48 Urine Bilirubin Neg (Negative) 12/04/18 14:48 Urine Urobilinogen < 2.0 mg/dL (<2.0) 12/04/18 14:48 Ur Leukocyte Esterase Tr (Negative) 12/04/18 14:48 Urine WBC (Auto) 5.0 /HPF (0.0-6.0) 12/04/18 14:48 Urine RBC (Auto) 4.0 /HPF (0.0-6.0) 12/04/18 14:48 U Epithel Cells (Auto) 14.0 /HPF (0-13.0) H 12/04/18 14:48 Urine Bacteria (Auto) 1+ /HPF (Negative) 12/04/18 14:48 Urine Mucus Few /HPF 12/04/18 14:48
[2018-12-06] MEDS: CLARITIN PO SCH (11:35)
[2018-12-06] MEDS ORDERED: PNEUMOVAX 23 IM ONE (12:00)
[2018-12-06] MEDS ORDERED: AFLURIA QUAD 2018-2019 SYRINGE IM ONE (12:00)
[2018-12-06] MEDS: FLONASE NS SCH (12:06)
--- NOTE | 2018-12-06 13:58 | Progress Note ---
Assessment and Plan Acute CVA (right MCA) S/P TPA administration in ED, Hypertension Extreme obesity - continue Neurochecks per protocol - continue Blood pressure management per protocol - Secondary stroke prophylaxis ongoing - Life style modification and weight loss again counceled - de-escalate antibiotic therapy - Monitor leukocytosis - PT/OT/AGRICULTURAL SCIENTIST evaluation - SCDs for VTE prophylaxis for now - Monitor accucheck and avoid hypoglycemia - continue other care per attending / other consultants .. re-evaluate in am & prn Subjective Date of service: 12/06/18 Principal diagnosis: Acute CVA (right MCA) S/P TPA; HTN; Extreme obesity Interval history: Patient is seen today for: Acute CVA (right MCA) S/P TPA administration in ED; Hypertension; Extreme obesity Seen and examined at bedside; 24hour events reviewed; nursing and respiratory care staff consulted; no adverse overnight events reported to me; resting peacefully in bed; feels much better; denies acute chest pains or palpitations; states her speech still a little slurred and numbmess to left face but overall improved; No N/V/F/C Objective Vital Signs - 12hr 12/06/18 12/06/18 05:13 05:33 Temperature 97.5 F L Pulse Rate 68 Respiratory 16 20 Rate Blood Pressure 116/58 O2 Sat by Pulse 100 Oximetry Constitutional: no acute distress, appears uncomfortable, other (morbidly obese) Eyes: non-icteric ENT: oropharynx moist Neck: supple, no lymphadenopathy, no JVD, other (short neck) Effort: normal Ascultation: Bilateral: clear, diminished breath sounds (at the bases, poor effort) Percussion: Bilateral: not dull Cardiovascular: regular rate and rhythm, other (S1,S2,no murmurs, gallops or rubs) Gastrointestinal: normoactive bowel sounds, soft, non-tender, non-distended, other (no hepatosplenomegally) Integumentary: normal Extremities: no cyanosis, no edema, pulses normal, no ischemia or petechiae Neurologic: non-focal exam, pupils equal and round, CN II-XII normal, motor strength normal and Psychiatric: mood appropriate CBC and BMP: 12/04/18 13:32 12/04/18 13:32 ABG, PT/INR, D-dimer: PT/INR, D-dimer PT 13.6 Sec. (12.2-14.9) 12/04/18 13:32 INR 1.00 (0.87-1.13) 12/04/18 13:32 Abnormal lab findings: Abnormal Labs 12/04/18 12/04/18 12/04/18 13:16 13:32 13:32 WBC 13.2 H MCV 74 L MCH 24 L RDW 18.8 H Seg Neutrophils # 9.0 H Glucose 102 H POC Glucose 122 H HDL Cholesterol U Epithel Cells (Auto) 12/04/18 12/05/18 14:48 04:47 WBC MCV MCH RDW Seg Neutrophils # Glucose POC Glucose HDL Cholesterol 32 L U Epithel Cells (Auto) 14.0 H Allied health notes reviewed: nursing
[2018-12-06] MEDS: PLAVIX PO SCH (23:08)
[2018-12-06] MEDS: LOVENOX SUB-Q SCH (23:08)
--- NOTE | 2018-12-07 09:00 | Discharge Summary ---
Providers - Providers Date of Admission: 12/04/18 15:07 Date of discharge: 12/07/18 Attending physician: ROSALINDA DALE 12/04/18 15:07 Occupational Therapy Evaluate and Treat [CONS] Routine Comment: Reason For Exam: Neuro deficits Physical Therapy Evaluation and Treat [CONS] Routine Comment: Reason For Exam: Neuro deficits 12/04/18 18:20 Consult to Physician [CONS] Urgent Comment: Consulting Provider: FRANCISCO JAVIER VELASCO Physician Instructions: Reason For Exam: CVA given TPA Primary care physician: VALVE TECHNICIAN Hospitalization Reason for admission: cva Condition: Serious Hospital course: 33 YO Female with Obesity presents to ED for evaluation. 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 Pt also reported acute onset of blurred vision in her left eye, left facial weakness, and Left leg weakness. EMS notified, and upon arrival the patient was found to have evidence of neurologic deficit. Pt transported to [facility] for further care and evaluation. Pt seen and evaluated in ED and found to have evidence of CVA. Teleneurology consulted, and patient was treated with TPA as per neurology recommendations. Pt admitted to ICU and initiated on CVA protocol. The patient essentially had complete resolution of her symptoms. Patient was admitted with diagnosis of acute right MCA CVA. CTA head and neck and carotid Dopplers were found to be negative. MRI/MRA was also found to be negative. Echocardiogram revealed left ventricular wall motion and contractility within normal limits. EF is 55-60%. No atrial septal defect demonstrated by agitated saline contrast. PT felt the patient could be discharged home with no needs. Dedicated discharge time 34 minutes. Disposition: DC-01 TO HOME OR SELFCARE Time spent for discharge: 34 - Discharge Diagnoses (1) CVA (cerebral vascular accident) Status: Acute Qualifiers: Precerebral and cerebral artery: middle cerebral artery Laterality of affected vessel: right (2) SIRS (systemic inflammatory response syndrome) Status: Acute Core Measure Documentation - Palliative Care Palliative Care/ Comfort Measures: Not Applicable - Core Measures Any of the following diagnoses?: none Exam - Constitutional Vitals: Temp Pulse Resp BP Pulse Ox 99.0 F 75 20 101/39 98 12/07/18 05:08 12/07/18 05:08 12/07/18 05:08 12/07/18 05:08 12/07/18 05:08 General appearance: Present: no acute distress, well-nourished - EENT Eyes: Present: PERRL ENT: hearing intact, clear oral mucosa - Neck Neck: Present: supple, normal ROM - Respiratory Respiratory effort: normal Respiratory: bilateral: CTA - Cardiovascular Heart Sounds: Present: S1 & S2. Absent: rub, click - Extremities Extremities: pulses symmetrical, No edema Peripheral Pulses: within normal limits - Abdominal General gastrointestinal: Present: soft, non-tender, non-distended, normal bowel sounds Female genitourinary: Present: normal - Integumentary Integumentary: Present: clear, warm, dry - Musculoskeletal Musculoskeletal: gait normal, strength equal bilaterally - Psychiatric Psychiatric: appropriate mood/affect, intact judgment & insight - Neurologic Neurologic: CNII-XII intact, moves all extremities Plan Activity: no restrictions Weight Bearing Status: Full Weight Bearing Diet: low fat, low cholesterol, low salt Follow up with: PRIMARY CARE,MD [Primary Care Provider] - 7 Days Prescriptions: ALBUTEROL Inhaler (OR & NICU) [ProAir HFA Inhaler] 2 puff IH QAM&QHS PRN 30 Days inha PRN Reason: Shortness Of Breath AtorvaSTATin [Lipitor] 40 mg PO QHS #30 tablet Clopidogrel [Plavix] 75 mg PO QDAY@2200 #30 tablet Fluticasone [Flonase] 2 spray NS QDAY 30 Days bottle
[2018-12-07] MEDS: CLARITIN PO SCH (11:12)
[2018-12-07] MEDS: ROCEPHIN/NS 1 GM/50 ML 1 GM/50 ML BAG IV SCH (11:12)
[2018-12-07] MEDS: FLONASE NS SCH (11:17)
--- NOTE | 2018-12-07 12:28 | Progress Note ---
Assessment and Plan Acute CVA (right MCA) S/P TPA administration in ED, Hypertension Extreme obesity - continue Neurochecks per protocol - continue Blood pressure management per protocol - Secondary stroke prophylaxis ongoing - Life style modification and weight loss again counceled - de-escalate antibiotic therapy - Monitor leukocytosis - PT/OT/CERTIFIED MEDICAL AIDE evaluation - SCDs for VTE prophylaxis for now - Monitor accucheck and avoid hypoglycemia - continue other care per attending / other consultants .. re-evaluate in am & prn Subjective Date of service: 12/07/18 Principal diagnosis: Acute CVA (right MCA) S/P TPA; HTN; Extreme obesity Interval history: Patient is seen today for: Acute CVA (right MCA) S/P TPA administration in ED; Hypertension; Extreme obesity Seen and examined at bedside; 24hour events reviewed; nursing and respiratory care staff consulted; no adverse overnight events reported to me; resting peacefully in bed; no new issues respiratory-garcias; No N/V/F/C; no new onset focal weakness Objective Vital Signs - 12hr 12/07/18 05:08 Temperature 99.0 F Pulse Rate 75 Respiratory 20 Rate Blood Pressure 101/39 O2 Sat by Pulse 98 Oximetry Constitutional: no acute distress, appears uncomfortable, other (morbidly obese) Eyes: non-icteric ENT: oropharynx moist Neck: supple, no lymphadenopathy, no JVD, other (short neck) Effort: normal Ascultation: Bilateral: clear, diminished breath sounds (at the bases, poor effort) Percussion: Bilateral: not dull Cardiovascular: regular rate and rhythm, other (S1,S2,no murmurs, gallops or rubs) Gastrointestinal: normoactive bowel sounds, soft, non-tender, non-distended, other (no hepatosplenomegally) Integumentary: normal Extremities: no cyanosis, no edema, pulses normal, no ischemia or petechiae Neurologic: non-focal exam, pupils equal and round, CN II-XII normal, motor strength normal and Psychiatric: mood appropriate CBC and BMP: 12/04/18 13:32 12/04/18 13:32 ABG, PT/INR, D-dimer: PT/INR, D-dimer PT 13.6 Sec. (12.2-14.9) 12/04/18 13:32 INR 1.00 (0.87-1.13) 12/04/18 13:32 Abnormal lab findings: Abnormal Labs 12/04/18 12/04/18 12/04/18 13:16 13:32 13:32 WBC 13.2 H MCV 74 L MCH 24 L RDW 18.8 H Seg Neutrophils # 9.0 H Glucose 102 H POC Glucose 122 H HDL Cholesterol U Epithel Cells (Auto) 12/04/18 12/05/18 14:48 04:47 WBC MCV MCH RDW Seg Neutrophils # Glucose POC Glucose HDL Cholesterol 32 L U Epithel Cells (Auto) 14.0 H Allied health notes reviewed: nursing
--- NOTE | 2018-12-07 13:13 | Query-Infection ---
"Deaherb Couch Date:__12/07/18 Lead Operator/CDS:___chris Phone#:__[phone] Exercise your independent professional judgment when responding to this query. Questions asked do not imply a particular answer is desired or expected. We greatly appreciate your clarification on this issue. Clinical Documentation States: 33 YO Female with Obesity presents to ED for evaluation. Pt states that she has experienced a headache for the past 2 days with persistent symptoms during the same time frame. Pt also reports acute onset of blurred vision in her left eye, left facial weakness, and Left leg weakness. Discharge Diagnoses (1) CVA (cerebral vascular accident) (2) SIRS (systemic inflammatory response syndrome) UTI. Continue antibiotics for now. Clinical findings show: (please check applicable parameters) Infection, known /suspected, with some of the following indicators; Specify the infection: UTI 12/04/18 WBC 13.2 OK 103 RR 22 General parameters [ ] Fever (core temp >38.30C or 100.40F) [ ] Hypothermia (core temp <36C) [X ] Heart rate >90 bpm [X ] Tachypnea: >20 bpm or pCO2 < 32 mmHg [ ] Altered mental status [ ] Significant edema / +ve fluid balance (>20 ml/kg 24 h) [ ] Hyperglycemia (Bl. glucose >110 mg/dl) w/o diabetes Inflammatory parameters [X ] Leukocytosis (white blood cell count >12,000/l) [ ] Leukopenia (white blood cell count <4,000/l) [ ] Bandemia (immature WBC > 10%) [ ] Leucocyte Left Shift [ ] Plasma procalcitonin>2 SD above the normal value Hemodynamic and tissue perfusion parameters [ ] Arterial hypotension(SBP <90 mmHg, MAP <70 mmHg,or a SBP drop >40 mmHg in adults) [ ] Hyperlactatemia (>3 mmol/l) [ ] Anion Gap (> 11mEG/l) [ ] Decreased capillary refill or mottling Organ dysfunction parameters [ ] Arterial hypoxemia (PaO2/FIO2 <300) [ ] Creatinine increase =0.5 mg/dl [ ] Acute oliguria (urine output <0.5 ml | kg |h or 45 mM/l for at least 2 hrs) [ ] Coagulation abnormalities (INR >1.5 or activated partial thromboplastin time >60 s) [ ] Ileus (absent pet[place] wel sounds) [ ] Thrombocytopenia (platelet count <100,000/l) [ ] Hyperbilirubinemia (plasma total bilirubin >4 mg/dl) According to the clinical indications above, can Bacteremia be further specified? If so, please indicate below and in your Progress Notes and/ or Discharge Summary. Indicate if the condition was present on admission. PHYSICIAN RESPONSE: [ x] Sepsis [ ] Severe Sepsis [ ] Septic Shock [ ] Septicemia [ ] Sepsis now resolved [ ] SIRS due to non-infectious cause with organ dysfunction [ ] SIRS due to non-infectious cause without organ dysfunction [ ] Other: [ ] Comment/Explanation: Present on Admission: [x ] Yes (Y) [ ] Clinically undeterminable (W) [ ] No (N) [ ] Ruled Out Please also document response in your Progress Notes and/or Discharge Summary and indicate if the condition was present on admission Notes: SIRS/ SIRS WITH ORGAN DYSFUNCTION Systemic inflammatory response syndrome (SIRS) generally refers to the systemic response to trauma/calvo or other insult such as Acute Myocardial Infarction, Acute Pancreatitis, and Major Surgery with symptoms including fever, tachycardia, tachypnea, and leukocytosis (1). BACTEREMIA Presence of viable bacteria in the circulating blood (2). This term is reserved for patients that do not manifest above SIRS response. SEPTICEMIA Generally refers to a systemic disease associated with the presence of pathological microorganisms or toxins in the blood, which can include bacteria, viruses, fungi or other organisms (1). SEPSIS Generally refers to SIRS due infection (1). SEVERE SEPSIS Generally refers to sepsis associated with acute organ dysfunction (1). SEPTIC SHOCK Generally refers to circulatory failure associated with severe sepsis (2), and defined as hypotension or hypoperfusion despite adequate fluid resuscitation (1 hour) (3). REFERENCES: 1. [place] [employer]/Society of Critical Care Medicine Consensus Conference. Definitions for sepsis and organ failure and guidelines for the use of innovative therapies in sepsis. Critical Care Med 1992;20:864 - 74. 2. Gopal nelson MM, Stephy VERGARA, Yash MONZON, Oumar E, Kyle D, Joel Carnes, Azeem J, Gail SM, Ravi JL, Yoshi G; International Sepsis Definitions Conference. 2001 SCCM/ESICM/ACCP/ATS/SIS International Sepsis Definitions Conference. Intensive Care Med. 2002;29(4):530-8. Epub 2002Feb 21. Review. PubMed PMID:[id number] 3. ICD-9-CM Official Guidelines for Coding and Reporting 4. Medscape Drugs, Diseases and Procedures references 5. [employer] Textbook of Internal Medicine. 18th Edition MTDD"
[2018-12-07 13:38] VITALS: BP 111/46
== END 2018-12-07 15:20 | disposition home or self-care (01) | DRG 871 ==
LOC: ED 13:11 → CC1 15:07 → 3A 12-05 15:51
PROVIDERS: ADMIT Internal Medicine; ATTEND Hospitalist
PROC: 3E03317 Introduction of Other Thrombolytic into Peripheral Vein, Percutaneous Approach (ICD-10-PCS; 2018-12-04)
PROC: 3E0234Z Introduction of Serum, Toxoid and Vaccine into Muscle, Percutaneous Approach (ICD-10-PCS; principal; 2018-12-06)
DX: A41.9 Sepsis, unspecified organism (principal); I63.9 Cerebral infarction, unspecified; Z68.43 Body mass index [BMI] 50.0-59.9, adult; E66.01 Morbid (severe) obesity due to excess calories; N30.00 Acute cystitis without hematuria; E66.9 Obesity, unspecified; Z23 Encounter for immunization; Z88.6 Allergy status to analgesic agent; Z79.51 Long term (current) use of inhaled steroids; Z79.899 Other long term (current) drug therapy; I10 Essential (primary) hypertension
CPT/HCPCS: 36415; 70450; 70496; 70498; 70544; 70551; 80053; 80061; 81001; 82550; 82553; 82962; 84484; 84702; 85025; 85610; 85670; 85730; 90686; 90732; 93005; 93010; 93306; 93880; 95819; 96374; G0378; A9270-GY; J0696; J1650; J2997; J7040; Q9967

== ENCOUNTER 2019-01-02 20:04 | Emergency (ER) | payer MEDICAID ==
[2019-01-02] MEDS ORDERED: MAGNESIUM SULFATE 2GM/50ML 2 GM/50 ML BAG IV ONE (20:56)
[2019-01-02] MEDS ORDERED: XYLOCAINE TOPICAL 4% TP ONE (20:56)
[2019-01-02] MEDS ORDERED: BENADRYL IV ONE (20:56)
[2019-01-02] MEDS ORDERED: REGLAN IV ONE (20:56)
[2019-01-02] MEDS ORDERED: SOLU-Medrol IV ONE (20:56)
--- NOTE | 2019-01-02 20:57 | Emergency Department Report ---
ED Headache HPI - General Chief Complaint: Neuro Symptoms/Deficit Stated Complaint: POSS STROKE Time Seen by Provider: 01/02/19 20:42 Source: patient, RN notes reviewed, old records Exam Limitations: physical impairment - History of Present Illness Initial Comments: This is a 33-year-old female. The patient is not known to this provider previously. Patient was admitted to this hospital last month for suspected stroke. At that time, she had a visual deficit in her left thigh, left facial weakness and left leg weakness. Patient was given TPA, and ultimately had a negative inpatient workup. Specifically, MRI, MRA negative, CT angiogram of head and neck negative, carotid Dopplers were negative, an echocardiogram was unremarkable, with no evidence of atrial septal defect. The patient was discharged with prescriptions for Plavix, and atorvastatin. She has follow-up w ith the neurologist on January 15. The patient is not known to me previously, and appears to have a history of obesity. Today, the patient presents to the ER with a complaint of left-sided retro-or bital pain, left temporal pain, headache, and binocular blurry vision. The symptoms started at 7:00 PM. They do not radiate anywhere, they're constant, they worsened with palpation, of the left temporal region, and exposure to light. The patient denies left-sided extremity weakness, or numbness. She denies other physical pain. She reports that she is not . Timing/Duration: 1-3 hours Quality: moderate Head Injury Location: temporal, other Recent Head Trauma: occasional headaches Modifying Factors: improves with: other (as per history of present illness) Associated Symptoms: vision changes Allergies/Adverse Reactions: Allergies ibuprofen Allergy (Verified 12/04/18 13:20) Unknown Home Medications: Ambulatory Orders Acetaminophen [Acetaminophen TAB] 1 - 2 tab PO Q6HR PRN 12/04/18 Loratadine [Claritin] 10 mg PO DAILY 12/04/18 ALBUTEROL Inhaler (OR & NICU) [ProAir HFA Inhaler] 2 puff IH QAM&QHS PRN 30 Days inha 12/07/18 AtorvaSTATin [Lipitor] 40 mg PO QHS #30 tablet 12/07/18 Clopidogrel [Plavix] 75 mg PO QDAY@2200 #30 tablet 12/07/18 Fluticasone [Flonase] 2 spray NS QDAY 30 Days bottle 12/07/18 Butalb/Acetamin/Caff 50-325-40 [Fioricet] 1 tab PO Q6HR PRN #15 tab 01/03/19 ED Review of Systems ROS: Stated complaint: POSS STROKE Other details as noted in HPI Constitutional: malaise. denies: fever Eyes: eye pain (intraorbital pain, blurry vision) ENT: denies: epistaxis, congestion Respiratory: denies: cough Cardiovascular: denies: chest pain Gastrointestinal: denies: abdominal pain, vomiting Genitourinary: denies: dysuria Musculoskeletal: denies: arthralgia, myalgia Skin: denies: lesions Neurological: headache ED Past Medical Hx - Past Medical History Previous Medical History?: Yes Hx Hypertension: Yes Hx Heart Attack/AMI: No Hx Congestive Heart Failure: No Hx Diabetes: No Hx Deep Vein Thrombosis: No Hx Pulmonary Embolism: No Hx GERD: No Hx Liver Disease: No Hx Renal Disease: No Hx Sickle Cell Disease: No Hx Arthritis: No Hx Headaches / Migraines: No Hx Seizures: Yes (2015) Hx Kidney Stones: No Hx Asthma: Yes Hx COPD: No Hx Tuberculosis: No Hx Dementia: No Hx HIV: No - Surgical History Past Surgical History?: No Hx Coronary Stent: No Hx Open Heart Surgery: No Hx Pacemaker: No Hx Internal Defibrillator: No Hx Cholecystectomy: No Hx Appendectomy: No Hx Breast Surgery: No - Social History Smoking Status: Former Smoker Substance Use Type: None - Medications Home Medications: Home Medications Medication Instructions Recorded Confirmed Last Taken Type Acetaminophen [Acetaminophen TAB] 1 - 2 tab PO Q6HR PRN 12/04/18 12/04/18 Unknown History Loratadine [Claritin] 10 mg PO DAILY 12/04/18 12/04/18 Unknown History ALBUTEROL Inhaler (OR & NICU) 2 puff IH QAM&QHS PRN 30 Days inha 12/07/18 Unknown Rx [ProAir HFA Inhaler] AtorvaSTATin [Lipitor] 40 mg PO QHS #30 tablet 12/07/18 Unknown Rx Clopidogrel [Plavix] 75 mg PO QDAY@2200 #30 tablet 12/07/18 Unknown Rx Fluticasone [Flonase] 2 spray NS QDAY 30 Days bottle 12/07/18 Unknown Rx Butalb/Acetamin/Caff 50-325-40 1 tab PO Q6HR PRN #15 tab 01/03/19 Unknown Rx [Fioricet] ED Physical Exam - General Limitations: Physical Limitation General appearance: alert, anxious, obese - Head Head exam: Present: atraumatic, normocephalic, other (there is no temporal tenderness. No vesicular lesions noted.) - Eye Eye exam: Present: normal appearance, PERRL, EOMI, other (visual acuity intact to finger counting, color perception, reading at a close distance). Absent: nystagmus - ENT ENT exam: Present: normal exam, normal orophraynx, mucous membranes moist, normal external ear exam - Neck Neck exam: Present: normal inspection, full ROM. Absent: tenderness, meningismus - Respiratory Respiratory exam: Present: normal lung sounds bilaterally. Absent: respiratory distress - Cardiovascular Cardiovascular Exam: Present: regular rate, normal rhythm, normal heart sounds. Absent: bradycardia, tachycardia, irregular rhythm, systolic murmur, diastolic murmur, rubs, gallop - GI/Abdominal GI/Abdominal exam: Present: soft. Absent: distended, tenderness, guarding, rebound, rigid, pulsatile mass - Extremities Exam Extremities exam: Present: normal inspection, full ROM, other (2+ pulses noted in the bilateral upper, lower extremities. Compartments soft. No long bony tenderness. The pelvis is stable.). Absent: pedal edema, joint swelling, calf tenderness - Back Exam Back exam: Present: normal inspection, full ROM. Absent: tenderness, CVA tenderness (R), paraspinal tenderness, vertebral tenderness - Neurological Exam Neurological exam: Present: alert (there is no pass pointing. There is negative pronator drift. There is normal heel to monson.), oriented X3, CN II-XII intact (patient walks with a slightly broad-based gait, after getting Benadryl. Reports that she feels sleepy after Benadryl.), other (Extraocular movements intact. Tongue midline. No facial droop. Facial sensation intact to light touch in the V1, V2, V3 distribution bilaterally. 5 and 5 strength in 4 extremities.. Sensation is intact to light touch in 4 extremities.). Absent: motor sensory deficit - Psychiatric Psychiatric exam: Present: normal affect, normal mood - Skin Skin exam: Present: warm, dry, intact, normal color. Absent: rash ED Course Vital Signs 01/02/19 01/02/19 01/02/19 20:19 20:27 20:55 Temperature 98.4 F 98.5 F Pulse Rate 88 92 H Respiratory 16 16 16 Rate Blood Pressure 135/88 146/69 Blood Pressure 146/69 [Left] O2 Sat by Pulse 99 98 92 Oximetry 01/02/19 01/02/19 01/03/19 21:59 23:17 00:28 Temperature 98.2 F 98.2 F 98.2 F Pulse Rate 83 78 78 Respiratory 16 16 16 Rate Blood Pressure Blood Pressure 126/61 126/57 121/70 [Left] O2 Sat by Pulse 100 100 100 Oximetry - Reevaluation(s) Reevaluation #1: 01/03/19 00:44 The headache is not sudden or thunderclap in nature, it did not reach maximal intensity within an hour, and it is not more intense than prior headaches. It i s similar than prior headaches, as for the patient. Reevaluation #2: 01/03/19 01:13 The patient is now walking with a steady gait. ED Medical Decision Making - Lab Data Result diagrams: 01/02/19 21:00 01/02/19 21:00 Vital Signs 01/02/19 01/02/19 01/02/19 20:19 20:27 20:55 Temperature 98.4 F 98.5 F Pulse Rate 88 92 H Respiratory 16 16 16 Rate Blood Pressure 135/88 146/69 Blood Pressure 146/69 [Left] O2 Sat by Pulse 99 98 92 Oximetry 01/02/19 01/02/19 01/03/19 21:59 23:17 00:28 Temperature 98.2 F 98.2 F 98.2 F Pulse Rate 83 78 78 Respiratory 16 16 16 Rate Blood Pressure Blood Pressure 126/61 126/57 121/70 [Left] O2 Sat by Pulse 100 100 100 Oximetry Lab Results 01/02/19 01/02/19 01/02/19 Range/Units 21:00 21:00 21:00 WBC 15.2 H (4.5-11.0) K/mm3 RBC 4.78 (3.65-5.03) M/mm3 Hgb 11.0 (10.1-14.3) gm/dl Hct 35.3 (30.3-42.9) % MCV 74 L (79-97) fl MCH 23 L (28-32) pg MCHC 31 (30-34) % RDW 17.9 H (13.2-15.2) % Plt Count 336 (140-440) K/mm3 Lymph % (Auto) 19.1 (13.4-35.0) % [place] % (Auto) 5.5 (0.0-7.3) % Eos % (Auto) 1.4 (0.0-4.3) % Baso % (Auto) 0.5 (0.0-1.8) % Lymph # 2.9 (1.2-5.4) K/mm3 [place] # 0.8 (0.0-0.8) K/mm3 Eos # 0.2 (0.0-0.4) K/mm3 Baso # 0.1 (0.0-0.1) K/mm3 Seg Neutrophils % 73.5 H (40.0-70.0) % Seg Neutrophils # 11.2 H (1.8-7.7) K/mm3 PT 14.2 (12.2-14.9) Sec. INR 1.06 (0.87-1.13) APTT 22.5 L (24.2-36.6) Sec. Thrombin Time (15.1-19.6) Sec. Sodium 138 (137-145) mmol/L Potassium 4.1 (3.6-5.0) mmol/L Chloride 103.2 (98-107) mmol/L Carbon Dioxide 25 (22-30) mmol/L Anion Gap 14 mmol/L BUN 9 (7-17) mg/dL Creatinine 0.7 (0.7-1.2) mg/dL Estimated GFR > 60 ml/min BUN/Creatinine Ratio 13 % Glucose 88 (65-100) mg/dL POC Glucose (70-105) Calcium 9.0 (8.4-10.2) mg/dL Magnesium (1.7-2.3) mg/dL Total Creatine Kinase (30-135) units/L Troponin T < 0.010 (0.00-0.029) ng/mL HCG, Qual (Negative) 01/02/19 01/02/19 01/02/19 Range/Units 21:00 21:00 21:13 WBC (4.5-11.0) K/mm3 RBC (3.65-5.03) M/mm3 Hgb (10.1-14.3) gm/dl Hct (30.3-42.9) % MCV (79-97) fl MCH (28-32) pg MCHC (30-34) % RDW (13.2-15.2) % Plt Count (140-440) K/mm3 Lymph % (Auto) (13.4-35.0) % [place] % (Auto) (0.0-7.3) % Eos % (Auto) (0.0-4.3) % Baso % (Auto) (0.0-1.8) % Lymph # (1.2-5.4) K/mm3 [place] # (0.0-0.8) K/mm3 Eos # (0.0-0.4) K/mm3 Baso # (0.0-0.1) K/mm3 Seg Neutrophils % (40.0-70.0) % Seg Neutrophils # (1.8-7.7) K/mm3 PT (12.2-14.9) Sec. INR (0.87-1.13) APTT (24.2-36.6) Sec. Thrombin Time 15.6 (15.1-19.6) Sec. Sodium (137-145) mmol/L Potassium (3.6-5.0) mmol/L Chloride (98-107) mmol/L Carbon Dioxide (22-30) mmol/L Anion Gap mmol/L BUN (7-17) mg/dL Creatinine (0.7-1.2) mg/dL Estimated GFR ml/min BUN/Creatinine Ratio % Glucose (65-100) mg/dL POC Glucose (70-105) Calcium (8.4-10.2) mg/dL Magnesium 2.10 (1.7-2.3) mg/dL Total Creatine Kinase 182 H (30-135) units/L Troponin T (0.00-0.029) ng/mL HCG, Qual Negative (Negative) 01/02/19 Range/Units 21:36 WBC (4.5-11.0) K/mm3 RBC (3.65-5.03) M/mm3 Hgb (10.1-14.3) gm/dl Hct (30.3-42.9) % MCV (79-97) fl MCH (28-32) pg MCHC (30-34) % RDW (13.2-15.2) % Plt Count (140-440) K/mm3 Lymph % (Auto) (13.4-35.0) % [place] % (Auto) (0.0-7.3) % Eos % (Auto) (0.0-4.3) % Baso % (Auto) (0.0-1.8) % Lymph # (1.2-5.4) K/mm3 [place] # (0.0-0.8) K/mm3 Eos # (0.0-0.4) K/mm3 Baso # (0.0-0.1) K/mm3 Seg Neutrophils % (40.0-70.0) % Seg Neutrophils # (1.8-7.7) K/mm3 PT (12.2-14.9) Sec. INR (0.87-1.13) APTT (24.2-36.6) Sec. Thrombin Time (15.1-19.6) Sec. Sodium (137-145) mmol/L Potassium (3.6-5.0) mmol/L Chloride (98-107) mmol/L Carbon Dioxide (22-30) mmol/L Anion Gap mmol/L BUN (7-17) mg/dL Creatinine (0.7-1.2) mg/dL Estimated GFR ml/min BUN/Creatinine Ratio % Glucose (65-100) mg/dL POC Glucose 80 (70-105) Calcium (8.4-10.2) mg/dL Magnesium (1.7-2.3) mg/dL Total Creatine Kinase (30-135) units/L Troponin T (0.00-0.029) ng/mL HCG, Qual (Negative) - EKG Data -: EKG Interpreted by Ut EKG shows normal: sinus rhythm Rate: normal - EKG Data 01/03/19 00:40 Sinus, 74 bpm, normal axis, GA interval prolonged, normal ST segments, not consistent with ST segment elevation myocardial infarction, grossly unchanged from prior EKG from 12/04/2018 - Radiology Data Radiology results: report reviewed, image reviewed Noncontrast CT scan of the brain is negative for acute disease. Chronic sinus disease is noted. - Medical Decision Making Differential diagnosis, including but not limited to: Migraine headache, tension headache, cluster headache, complex migraine Assessment and plan: 33-year-old female recently admitted to this medical institution within the past month, had extensive workup for stroke, had no objective abnormal findings, with recurrent left-sided retro-orbital pain, temporal headache, and nonspecific binocular blurry vision. Most likely cluster headache, or ocular migraine. Patient is afebrile, with reassuring vital signs. Cranial nerve exam is unremarkable, her motor, sensory exams unremarkable, no past pointing, currently has NIH score of 0. She requires some assistance with her gait after receiving IV Benadryl. Given her young age, recent objective negative workup, history and physical, I think stroke is quite unlikely. She will be started on appropriate sent headache medication, and she'll be instructed to follow-up with an outpatient neurologist. Critical care attestation.: If time is entered above; I have spent that time in minutes in the direct care of this critically ill patient, excluding procedure time. ED Disposition Clinical Impression: Headache Disposition: DC-01 TO HOME OR SELFCARE Is pt being admited?: No Does the pt Need Aspirin: No Condition: Good Instructions: Cluster Headache (ED), Migraine Headache (ED), Ocular Migraine (ED) Additional Instructions: Continue outpatient medications. Take the prescribed headache medication as needed/directed. If taking headache medicine, do not drive, consume alcohol, make important decisions, or combine with other sedating medications. Follow up with any of the listed neurology specialists within the next 7-10 days. Return to the emergency room right away with new, worsening or different symptoms. Prescriptions: Butalb/Acetamin/Caff 50-325-40 [Fioricet] 1 tab PO Q6HR PRN #15 tab PRN Reason: Headache Referrals: JUANPABLO HART MD [Referring] - 7-10 days BART MCHUGH MD [Staff Physician] - 7-10 days RANDA EDDY MD [Staff Physician] - 7-10 days
[2019-01-02 21:26] LABS: Basophils # (Auto) 0.1 K/mm3 (0.0-0.1); Basophils % (Auto) 0.5 % (0.0-1.8); Eosinophils # (Auto) 0.2 K/mm3 (0.0-0.4); Eosinophils % (Auto) 1.4 % (0.0-4.3); Hematocrit 35.3 % (30.3-42.9); Lymphocytes # (Auto) 2.9 K/mm3 (1.2-5.4); Lymphocytes % (Auto) 19.1 % (13.4-35.0); Mean Corpuscular HGB Conc 31 % (30-34); Mean Corpuscular Volume 74 fl (79-97); Monocytes # (Auto) 0.8 K/mm3 (0.0-0.8); Monocytes % (Auto) 5.5 % (0.0-7.3); Platelet Count 336 K/mm3 (140-440); Red Blood Count 4.78 M/mm3 (3.65-5.03); Red Cell Distribution Width 17.9 % (13.2-15.2)
[2019-01-02 21:32] LABS: INR 1.06 (0.87-1.13)
[2019-01-02 21:33] LABS: Partial Thromboplastin Time 22.5 Sec. (24.2-36.6)
[2019-01-02 21:37] LABS: BUN/Creatinine Ratio 13; Blood Urea Nitrogen 9 mg/dL (7-17); Hemolysis Index 3
--- NOTE | 2019-01-02 22:59 | Cat Scan Report ---
FINAL REPORT EXAM: CT HEAD/BRAIN WO CON HISTORY: headache blurry vision TECHNIQUE: CT was performed from the foramen magnum through the vertex in the axial plane without th e use of intravenous contrast. PRIORS: 12/04/2018 FINDINGS: The durand/white matter attenuation pattern is normal. There is no mass lesion or mass effect. There ar e no abnormal extra-axial fluid collections. There is no evidence of acute intracranial hemorrhage or infarct. The ventricles are of normal size and configuration. The skull and orbits are unremarkable . There is opacification of the right sphenoid sinus, without change. IMPRESSION: Normal CT of the head. Chronic right sphenoid sinus disease.
[2019-01-03 00:28] VITALS: BP 121/70
== END 2019-01-03 01:30 | disposition home or self-care (01) ==
LOC: ED 20:04
DX: R51 Headache (principal); H53.8 Other visual disturbances; I10 Essential (primary) hypertension; J45.909 Unspecified asthma, uncomplicated; Z88.6 Allergy status to analgesic agent; Z87.891 Personal history of nicotine dependence
CPT/HCPCS: 36415; 70450; 80048; 82550; 82962; 83735; 84484; 84703; 85025; 85610; 85670; 85730; 93005; 93010; 96365; 96375; 99285; J1200; J2765; J2930; J3475